=== PATIENT | female | born 1965 | race Caucasian/White ===

== ENCOUNTER 2016-06-06 13:05 | Emergency (ER) | payer OTHER ==
[~2016-06-06 13:05] MED LIST: ASPI-973 PO; BUPR300T51 PO; IBUP800T28 PO; LATA2.5D6 OP; LEVO75TA4 PO; NAPR550T44 PO; OMEP20TA86 PO; ONDA-53 PO; OXYB5TAB10 PO; PRE20 PO; TRAM-14 PO; [UNRECOGNIZED DRUG - CODE] MC
[2016-06-06 13:09] VITALS: BP 144/93; PULSE 94; RESP 24; O2SAT 97
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
[2016-06-06] MEDS ORDERED: LORazepam 1 mg Tablet PO PRN (13:50)
[2016-06-06 15:01] LABS: BASOPHILS % (AUTO) 0.5 % (0-3); EOSINOPHILS % (AUTO) 2.8 % (0-5); MONOCYTES % (AUTO) 8.7 % (4-12); Mean Corpuscular Hemoglobin 27.2 pg (27.0-35.0); Mean Corpuscular Volume 84.4 fL (81-100); Platelet Count 256 bil/L (150-400)
[2016-06-06 15:30] LABS: TROPONIN T < 0.010 ug/L (0.0-0.011)
[2016-06-06 15:32] LABS: Magnesium 2.4 mg/dL (1.6-2.6)
--- NOTE | 2016-06-06 15:41 | DRSVH ---
PROCEDURE: X-RAY CHEST ONE VIEW, PORTABLE ([id number]) INDICATIONS: chest pain, dyspnea TECHNIQUE: One view of the chest was acquired. COMPARISON: [facility], , CHEST 1 VIEW, 11/04/2014, 17:41. FINDINGS: Surgical changes and devices: None. Lungs and pleura: No pleural effusions or pneumothorax. Lungs are clear. Mediastinum: Mediastinal contours appear normal. Heart size is normal. Bones and chest wall: No suspicious bony lesions. Overlying soft tissues appear unremarkable. IMPRESSION: No acute cardiopulmonary disease. Dictated by: Elizabeth Pelaez M.D. on 06/06/2016 at 15:39 Approved by: Elizabeth Pelaez M.D. on 06/06/2016 at 15:39
[2016-06-06] MEDS ORDERED: TRAM50TA2 PO (16:25)
[2016-06-06] MEDS ORDERED: IBUP800T28 PO (16:45)
[2016-06-06 17:04] VITALS: BP 148/94; PULSE 89; RESP 15; O2SAT 100
[2016-06-07] MEDS ORDERED: TRAM50TA2 PO (11:01)
[2016-06-07] MEDS ORDERED: HYDR-656 PO (11:01)
== END 2016-06-06 16:25 | disposition home or self-care (01) ==
LOC: EDUNIT# 13:05 → SED 13:05 → EDBD 13:05 → SED 16:25
DX: R07.9 Chest pain, unspecified (principal); F41.9 Anxiety disorder, unspecified; R06.02 Shortness of breath; M54.9 Dorsalgia, unspecified; G89.29 Other chronic pain; G47.33 Obstructive sleep apnea (adult) (pediatric); M19.90 Unspecified osteoarthritis, unspecified site; F32.9 Major depressive disorder, single episode, unspecified; F43.10 Post-traumatic stress disorder, unspecified; Z87.898 Personal history of other specified conditions; Z95.0 Presence of cardiac pacemaker; Z79.82 Long term (current) use of aspirin

== ENCOUNTER 2016-06-07 09:45 | Emergency (ER) | payer OTHER ==
[~2016-06-07] VITALS: Ht 167.6 cm; Wt 75.5 kg
[~2016-06-07 09:45] MED LIST changes: +TRAM50TA2 PO
[2016-06-07 09:46] VITALS: BP 159/99; PULSE 80; RESP 16; O2SAT 95
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
[2016-06-07] MEDS ORDERED: TRAM50TA2 PO (11:01)
[2016-06-07] MEDS ORDERED: HYDR-656 PO (11:01)
== END 2016-06-07 11:10 | disposition home or self-care (01) ==
LOC: SED 09:45
DX: M54.5 Low back pain (principal); F41.9 Anxiety disorder, unspecified; M79.604 Pain in right leg; M79.605 Pain in left leg; E03.9 Hypothyroidism, unspecified; Z79.82 Long term (current) use of aspirin; Z59.0 Homelessness

== ENCOUNTER 2016-06-12 17:36 | Emergency (ER) | payer OTHER ==
[~2016-06-12] VITALS: Ht 166.4 cm; Wt 75.5 kg
[~2016-06-12 17:36] MED LIST changes: +HYDR-656 PO
[2016-06-12 17:47] VITALS: BP 163/102; PULSE 81; RESP 16; O2SAT 98
--- NOTE | 2016-06-12 18:44 | ED.REPORT ---
HPI-Back Pain 40 and Over Date of Service Jun 12, 2016 ED Provider: MD Pamela This is a 51 year old female with a history of chronic back pain, osteoarthritis sleep apnea, depression, anxiety, PTSD, hypothyroidism presenting to the emergency department complaining of pain at the lumbosacral junction that began yesterday. Pt was standing in line for dinner at the [facility] when she developed sudden onset numbness at the site. Denies radiation of pain or numbness. Also reports one episode bright red-blood streaked stool today morning. Denies recent trauma, injuries, dysuria, nausea, vomiting, fevers, or chills. Pt lives at the [facility] presently. Denies similar symptoms previously. Nursing Notes Stated Complaint: NUMBNESS/PAIN IN BACK Chief Complaint: Back Pain or Injury Nursing Notes Reviewed: Yes Allergies: Coded Allergies: codeine (Verified Adverse Reaction, Intermediate, nauseated, 06/12/16) Scheduled Aspirin (Aspirin) 81 Mg Tablet 81 MG PO DAILY Bupropion ER (Wellbutrin XL) 300 Mg Tab.er.24h 300 MG PO DAILY Latanoprost (Latanoprost) 2.5 Ml Drops 1 GTT OP HS Latanoprost (Latanoprost) 2.5 Ml Drops 1 GTT OP HS Levothyroxine (Levothyroxine) 75 Mcg Tablet 75 MCG PO DAILY Omeprazole (Omeprazole) 20 Mg Tablet.dr 20 MG PO DAILY Oxybutynin Chloride (Oxybutynin Chloride) 5 Mg Tablet 5 MG PO TID Prednisone (PredniSONE) 20 Mg Tablet 20 MG PO DAILY Scheduled PRN Ibuprofen (Ibuprofen) 800 Mg Tablet 800 MG PO DAILY PRN PRN For Pain Ibuprofen (Ibuprofen) 800 Mg Tablet 800 MG PO TID PRN PRN For Pain Naproxen Sodium (Naproxen Sodium) 550 Mg Tab 550 MG PO BID PRN PRN For Pain Ondansetron (Ondansetron) 4 Mg Tablet 4 MG PO PRN For Nausea Tramadol (Ultram) 50 Mg Tablet 100 MG PO Q6H PRN PRN Pain Tramadol (Tramadol) 50 Mg Tablet 50 MG PO Q4H PRN PRN For Pain Tramadol (Tramadol) 50 Mg Tablet 100 MG PO BID PRN PRN For Pain hydrOXYzine Hcl (HydrOXYzine Hcl) 25 Mg Tablet 25 MG PO TID PRN PRN For Anxiety or Agitation Miscellaneous Medications Flunisolide (Flunisolide) 1 Gm Powder 1 GM General Time Seen by MD: 18:44 Chief Complaint Back pain Hx Obtained From: Patient Arrived By: Walk-in Sudden in Onset?: Yes Symptom Duration: Since onset Severity: Current: Moderate Pertinent Negative: Pt denies other symptoms Recent Healthcare: No recent doctor visit, No recent hospitalization Similar Sx Previous: No Past Medical History Past Medical History Obstructive sleep apnea Hx of yeast infections Anxiety Depression PTSD Osteoarthritis Chronic back pain RSD Chronic lower extremity swelling Hypothyroidism Past Surgical History Reports: Cholecystectomy, Hysterectomy Family History Noncontributory Smoking History Never Smoker Social History Alcohol Use: Denies alcohol use Drug Use: Denies drug use Other Social History: Good social support, Frequent ED visitor, Local resident , Homeless Occupation [place] [employer] Status Independent Review of Systems Constitutional: Denies: Chills, Fever Respiratory: Denies: Non-productive cough, Shortness of breath Cardiovascular: Denies: Chest pain GI: Denies: Abdominal pain, Nausea, Vomiting Musculoskeletal: Reports: Back pain, Denies: Extremity pain, Neck pain Neurologic: Reports: Numbness, Denies: Weakness Complete sys rev & neg: except as marked. Physical Exam Initial Vital Signs Vital Signs (First) Date Time Temp Pulse Resp B/P Pulse Ox O2 Delivery O2 Flow Rate FiO2 06/12/16 17:47 37.1 81 16 163/102 98 Room Air Initial VS: Reviewed Head / Eyes: Atraumatic, Normocephalic, PERRL ENT: Mucous membranes moist, Conjunctiva normal, No scleral icterus Neck: Supple, Non-tender, Full range of motion Extremities: Vascular intact, Neuro intact, No swelling, No tenderness Skin: Warm, Dry, No cyanosis Psychiatric: Mood/affect normal, Behavior normal, Normal thought content General/Constitutional: Awake, Alert Respiratory / Chest: Breath sounds NL, Breath sounds = bilat, No respiratory distress, No rales, No rhonchi, No wheezing Cardiovascular: Heart rate NL, Regular rhythm, Heart sounds NL, No murmurs, Peripheral circulation NL Abdomen: Soft, Non-tender, No guarding, No rebound, No distention, No palpable mass, No pulsatile mass Back: Full range of motion, No midline vertebral tend tender at R SI joint, no saddle anesthesia, no signs of cord syndrome Neurologic: Oriented X3, Speech NL, No motor deficits, No sensory deficits, CN II - XII intact Interpretation & Diagnostics Interpretation & Diagnostics: LUMBAR X-RAY IMPRESSION: Degenerative disc disease and facet arthropathy in lumbar spine. Dictated by: Elizabeth Pelaez M.D. on 06/12/2016 at 20:58 Approved by: Elizabeth Pelaez M.D. on 06/12/2016 at 21:00 Lab Results Interpretation Result Diagram: 06/12/16204806/12/[id number] Test 06/12/16 20:49 White Blood Count 5.9th/mm3 (3.8-10.1) Red Blood Count 4.68mil/mm3 (3.90-5.20) Hemoglobin 12.7g/dL (12.0-15.6) Hematocrit 39.7% (35.0-46.0) Mean Corpuscular Volume 84.8fL (81-100) Mean Corpuscular Hemoglobin 27.1pg (27.0-35.0) Mean Corpuscular Hemoglobin Concent 32.0% (32.0-37.0) Red Cell Distribution Width 13.7% (12.3-15.4) Platelet Count 243bil/L (150-400) Neutrophils (%) (Auto) 61.2% (40-74) Lymphocytes (%) (Auto) 27.5% (14-46) Monocytes (%) (Auto) 5.7% (4-12) Eosinophils (%) (Auto) 4.9% (0-5) Basophils (%) (Auto) 0.5% (0-3) Sodium Level 138mEq/L (134-144) Potassium Level 3.7mEq/L (3.5-5.2) Chloride Level 99mEq/L (97-108) Carbon Dioxide Level 26mmol/L (18-29) Blood Urea Nitrogen 16mg/dL (6-24) Creatinine 0.88mg/dL (0.57-1.00) Estimat Glomerular Filtration Rate 96mL/min (>59) Glucose Level 107mg/dL (60-99) Calcium Level 9.2mg/dL (8.5-10.1) Total Bilirubin 0.2mg/dL (0.0-1.2) Aspartate Amino Transf (AST/SGOT) 27U/L (0-50) Alanine Aminotransferase (ALT/SGPT) 19U/L (0-32) Alkaline Phosphatase 70U/L (25-150) Total Protein 7.2g/dL (6.4-8.4) Albumin 4.4g/dL (3.4-5.0) Hold Tobin Top Tube Received (Received) Re-Eval/Medical Decision Med Decision/Clinical Course Normal bowel movement while at the emergency department. No bloody stools. Laboratory work reassuring. Imaging reassuring. Pain adequately treated. I recommend close outpatient follow-up Counseled Regarding: Diagnosis, Lab results, Need for follow-up, When/why to return to ED Discharge & Departure Impression: Primary Impression: Low back pain Chronicity: chronic Back pain laterality: unspecified Sciatica presence: without sciatica Qualified Code: M54.5 - Low back pain Additional Impression: Lower GI bleed Disposition: Home Discharge Condition All VS Reviewed: Yes Condition: Stable Patient Instructions: Acute Low Back Pain (ED) Additional Instructions: Your labs and x-ray were reassuring today. Continue taking medications as prescribed by your primary care provider. Follow up with your primary care provider for colonoscopy referral. Return to the emergency department if you develop any new or worsening symptoms. Referrals: Antonietta Stern (PCP) Scribe Attestation Portions of this note were transcribed by Donald Posada. I, Dr. Santiago personally performed the history, physical exam and medical decision-making; I reviewed and confirmed the accuracy of the information in the transcribed note. Signed by: Donald Posada. 06/12/2016, 03:00. Charli Santiago DO Jun 12, 2016 18:44 DONALD POSADA Jun 12, 2016 18:47
[2016-06-12] MEDS ORDERED: HYDROmorphone 1 mg/mL Inj IM ONE (19:00)
[2016-06-12] MEDS ORDERED: Dexamethasone 10 mg/mL Inj IM ONE (19:00)
[2016-06-12 20:58] LABS: BASOPHILS % (AUTO) 0.5 % (0-3); EOSINOPHILS % (AUTO) 4.9 % (0-5); MONOCYTES % (AUTO) 5.7 % (4-12); Mean Corpuscular Hemoglobin 27.1 pg (27.0-35.0); Mean Corpuscular Volume 84.8 fL (81-100); NEUTROPHILS % (AUTO) 61.2 % (40-74); Platelet Count 243 bil/L (150-400)
--- NOTE | 2016-06-12 21:01 | DRSVH ---
PROCEDURE: X-RAY LUMBAR SPINE, 2 OR 3 VIEW INDICATIONS: low back and right si joint pain TECHNIQUE: 2 views of the lumbar spine were acquired. COMPARISON: None. FINDINGS: Bones: 3 [id number] vertebrae are present. There is normal bony alignment. No vertebral body compression fractures. No suspicious bony lesions. There is degenerative disc disease in lumbar spi ne, moderate at L4-L5 and mild at L3-L4. There is moderate facet arthropathy at L5-S1. The SI joints appears normal. Soft tissues: Overlying bowel gas pattern is normal. No suspicious soft tissue calcifications. IMPRESSION: Degenerative disc disease and facet arthropathy in lumbar spine. Dictated by: Elizabeth Pelaez M.D. on 06/12/2016 at 20:58 Approved by: Elizabeth Pelaez M.D. on 06/12/2016 at 21:00
[2016-06-12] MEDS: Ondansetron 2 mg/mL 2 mL Inj ONE ×2 (22:08→22:40)
[2016-06-12 22:21] VITALS: BP 147/91; PULSE 73; RESP 16; O2SAT 95
== END 2016-06-12 22:11 | disposition home or self-care (01) ==
LOC: SED 17:36
DX: M54.5 Low back pain (principal); K92.2 Gastrointestinal hemorrhage, unspecified; R20.0 Anesthesia of skin; E03.9 Hypothyroidism, unspecified; Z79.82 Long term (current) use of aspirin; Z59.0 Homelessness; Z88.5 Allergy status to narcotic agent
CPT/HCPCS: 36415; 72100; 80053; 85025; 96372; 99284; J1100; J1170

== ENCOUNTER 2016-06-28 08:04 | Emergency (ER) | payer OTHER ==
[~2016-06-28] VITALS: Ht 165.1 cm; Wt 75.5 kg
[2016-06-28 08:08] VITALS: BP 154/99; PULSE 90; RESP 10; O2SAT 98
--- NOTE | 2016-06-28 08:20 | ED.REPORT ---
HPI-Abd Pain F 40 and Over Date of Service Jun 28, 2016 ED Provider: Bruce Godinez DO The patient is a homeless, 51 year old female w/ a hx of cholecystectomy, hysterectomy, back pain, ptsd, depression, anxiety who presents to the ED due to bright red blood in her stool with every bowel movement for the last 2 weeks. Last night, she began having intense lower abdominal pain 10 minutes after eating. None of her other friends who she ate with reported any illness. Associated symptoms include vaginal discharge. She has experienced these symptoms before, but never this bright red or consistent over a long period of time. The pain is preventing her from walking upright. She was last seen at the ED 3 weeks ago at which point her hemoglobin was normal and there were no acute findings. She denies dysuria and pain with bowel movements. Antacids minimally helped to relieve her symptoms. Nursing Notes Stated Complaint: SEVERE ABDOMINAL PAIN/POSS BLOOD IN STOOL Chief Complaint: Female Abdominal Pain Nursing Notes Reviewed: Yes Allergies: Coded Allergies: codeine (Verified Adverse Reaction, Intermediate, nauseated, 06/12/16) Scheduled Bupropion ER (Wellbutrin XL) 150 Mg Tab.er.24h 450 MG PO DAILY Latanoprost (Latanoprost) 2.5 Ml Drops 1 GTT OP HS Latanoprost (Latanoprost) 2.5 Ml Drops 1 GTT OP HS Levothyroxine (Levothyroxine) 75 Mcg Tablet 75 MCG PO DAILY Omeprazole (Omeprazole) 20 Mg Tablet.dr 20 MG PO DAILY Oxybutynin Chloride (Oxybutynin Chloride) 5 Mg Tablet 5 MG PO TID Prednisone (PredniSONE) 20 Mg Tablet 20 MG PO DAILY Scheduled PRN Ibuprofen (Ibuprofen) 800 Mg Tablet 800 MG PO DAILY PRN PRN For Pain Ibuprofen (Ibuprofen) 800 Mg Tablet 800 MG PO TID PRN PRN For Pain Naproxen Sodium (Naproxen Sodium) 550 Mg Tab 550 MG PO BID PRN PRN For Pain Ondansetron (Ondansetron) 4 Mg Tablet 4 MG PO PRN For Nausea Tramadol (Ultram) 50 Mg Tablet 100 MG PO Q6H PRN PRN Pain Tramadol (Tramadol) 50 Mg Tablet 50 MG PO Q4H PRN PRN For Pain Tramadol (Tramadol) 50 Mg Tablet 100 MG PO BID PRN PRN For Pain hydrOXYzine Hcl (HydrOXYzine Hcl) 25 Mg Tablet 25 MG PO TID PRN PRN For Anxiety or Agitation Miscellaneous Medications Flunisolide (Flunisolide) 1 Gm Powder 1 GM General Time Seen by MD: 08:20 Chief Complaint Abdominal pain Hx Obtained From: Patient Arrived By: Walk-in Sudden in Onset?: Yes Onset Occurred: Yesterday Context of Onset: Eating Symptom Duration: Since onset Location: : Abdomen lower Quality: Painful Radiation: : Does not radiate Severity: Current: Mild Recent Healthcare: Recent doctor visit Similar Sx Previous: Yes Past Medical History Past Medical History Obstructive sleep apnea Hx of yeast infections Anxiety Depression PTSD interstitial cystitis Osteoarthritis Chronic back pain RSD Chronic lower extremity swelling Hypothyroidism Past Surgical History left ovary removed Reports: Cholecystectomy, Hysterectomy Family History Noncontributory Smoking History Never Smoker Social History Alcohol Use: Denies alcohol use Drug Use: Denies drug use Other Social History: Good social support, Frequent ED visitor, Local resident , Homeless Occupation [employer] Status Independent Review of Systems GI: Reports: Abdominal pain, Bloody/tarry stool Female: Reports: Vaginal discharge, Denies: Dysuria Complete sys rev & neg: except as marked. Physical Exam Physical Exam Notes: Vital Signs Vital Signs (First) Date Time Temp Pulse Resp B/P Pulse Ox O2 Delivery O2 Flow Rate FiO2 06/28/16 08:08 36.4 90 10 154/99 98 Room Air Initial VS: Reviewed Head / Eyes: Atraumatic, Normocephalic, PERRL ENT: Mucous membranes moist, Conjunctiva normal, No scleral icterus Extremities: Vascular intact, Neuro intact, No swelling, No tenderness Skin: Warm, Dry, No cyanosis Psychiatric: Mood/affect normal, Behavior normal, Normal thought content General/Constitutional: Awake, Alert, No acute distress, Cooperative, Not toxic appearing Respiratory / Chest: Atraumatic, Breath sounds NL, Breath sounds = bilat, No respiratory distress Cardiovascular: Heart rate NL, Regular rhythm, Heart sounds NL, No gallop, No murmurs, No rubs Abdomen: Atraumatic, Soft, No guarding, No rebound, BS normoactive Tenderness/Guarding/Rebound: Positive: Tender suprapubic (mild) mid suprapubic tenderness Back: Atraumatic, Inspection NL, Full range of motion, Painless range of motion , Non-tender Female Genitourinary: Bag End Sewer present, Atraumatic, External genitalia NL, No bleeding, No cervical motion tend Pelvic exam normal Rectum / Perineum: Blood - occult heme -, No gross blood anterior midline hemorrhoid no internal blood seen don't feel any internal hemorrhoids Interpretation & Diagnostics Lab Results Interpretation Result Diagram: 06/28/16 0952 06/28/16 0952 Test 06/28/16 09:52 06/28/16 17:59 White Blood Count 5.5th/mm3 (3.8-10.1) Red Blood Count 4.69mil/mm3 (3.90-5.20) Hemoglobin 12.7g/dL (12.0-15.6) Hematocrit 40.3% (35.0-46.0) Mean Corpuscular Volume 85.9fL (81-100) Mean Corpuscular Hemoglobin 27.1pg (27.0-35.0) Mean Corpuscular Hemoglobin Concent 31.5% (32.0-37.0) Red Cell Distribution Width 13.9% (12.3-15.4) Platelet Count 211bil/L (150-400) Neutrophils (%) (Auto) 60.8% (40-74) Lymphocytes (%) (Auto) 26.6% (14-46) Monocytes (%) (Auto) 8.4% (4-12) Eosinophils (%) (Auto) 3.3% (0-5) Basophils (%) (Auto) 0.7% (0-3) Hold Blue Top Tube Received (Received) Sodium Level 137mEq/L (134-144) Potassium Level 3.8mEq/L (3.5-5.2) Chloride Level 100mEq/L (97-108) Carbon Dioxide Level 23mmol/L (18-29) Blood Urea Nitrogen 13mg/dL (6-24) Creatinine 0.88mg/dL (0.57-1.00) Estimat Glomerular Filtration Rate 96mL/min (>59) Glucose Level 93mg/dL (60-99) Calcium Level 9.2mg/dL (8.5-10.1) Magnesium Level 2.3mg/dL (1.6-2.6) Total Bilirubin 0.4mg/dL (0.0-1.2) Aspartate Amino Transf (AST/SGOT) 16U/L (0-50) Alanine Aminotransferase (ALT/SGPT) 12U/L (0-32) Alkaline Phosphatase 70U/L (25-150) Total Protein 6.9g/dL (6.4-8.4) Albumin 4.6g/dL (3.4-5.0) Lipase 28U/L (13-60) Hold Red Top Tube Received (Received) Hold Tobin Top Tube Received (Received) Urine Color Yellow (YELLOW) Urine Appearance Hazy (CLEAR,HAZY) Urine pH 8.0 (5.0-8.0) Urine Specific Gaines 1.010 (1.003-1.035) Urine Protein Negativemg/dL (NEG,TRACE) Urine Glucose (UA) Negativemg/dL (NEGATIVE) Urine Ketones Negativemg/dL (NEGATIVE) Urine Occult Blood Negative (NEGATIVE) Urine Nitrite Negative (NEGATIVE) Urine Bilirubin Negative (NEGATIVE) Urine Urobilinogen Normalmg/dL (NORMAL) Urine Leukocyte Esterase Small (NEGATIVE) Urine RBC 0-2/hpf (0-2) Urine WBC 11-50/hpf (0-5) Urine Epithelial Cells Few/hpf (NONE-MOD) Urine Crystals None seen (NONE SEEN) Urine Bacteria Few/hpf (NONE-FEW) Urine Hyaline Casts None/lpf (NONE) Urine Granular Casts None seen (NONE SEEN) Urine Waxy Casts None seen (NONE SEEN) Urine Red Blood Cell Casts None seen (NONE SEEN) Urine White Blood Cell Casts None seen (NONE SEEN) Urine Mucus None seen (None Seen) Urine Trichomonas None seen (NONE SEEN) Urine Yeast None (NONE SEEN) Urinalysis Comment None Urine Culture Reflexed Indicated Lab Results Interpretation: urine dip negative X-Ray Abdominal Interpretation IMPRESSION: Large amount of stool consistent with constipation. The bowel gas pattern is normal. Dictated by: Elizabeth Pelaez M.D. on 06/28/2016 at 9:55 Approved by: Elizabeth Pelaez M.D. on 06/28/2016 at 9:57 Study: 2 view Interpretation / Wet Read by: Interpret - Radiologist Re-Eval/Medical Decision Med Decision/Clinical Course 51-year-old female returns concerned about a bleeding hemorrhoid and abdominal pain. Her abdominal pain is in the suprapubic region. Urine dip was normal so initially I did not think there was a UTI. UA with micro shows significant leukocytes in urine. Hemoglobin is been stable from the last time she was here several weeks ago complaining of rectal bleeding. Although by history it sounds like she is seeing more blood I reassured her that it is not too significant point causing anemia. Guaiac is negative. There is no blood seen per rectum. Abdominal x-ray returned showing constipation. Patient advised to take stool softeners. Her abdominal pain was completely relieved by Toradol. She does have a history of interstitial cystitis which I initially believed was the main cause of her lower abdominal pain/suprapubic pain today. I advised her to follow-up with her doctor to have this evaluated further and treated. After discharge the UA with micro-returned and it is noted that patient has UTI. Patient contacted and antibiotics sent to pharmacy Prior to discharge patient was very concerned about her vaginal discharge. She has had a hysterectomy so I reassured her she does not have PID. He described having white cheesy discharge and itchiness in the vaginal region. Pelvic exam was performed with nurse motor coach operator which was unremarkable. There is no discharge seen in the vaginal vault in the mucosal tissue was normal in appearance. Patient was reassured by this. Re-Evaluation/Progress : Time of Eval: 11:03 Re-Evaluation/Progress Note: Pt rechecked. Informed of normal x-ray and urine dip. Pt will be dishcarged and sent home. F/U and RTER warnings given. Pt understands and agrees with plan. Counseled Regarding: Diagnosis, Lab results, Need for follow-up, When/why to return to ED Discharge & Departure Primary Impression: Abdominal pain Abdominal location: unspecified location Qualified Code: R10.9 - Unspecified abdominal pain Additional Impressions: Hemorrhoids Hemorrhoid type: unspecified Qualified Code: K64.9 - Unspecified hemorrhoids Constipation Constipation type: unspecified constipation type Qualified Code: K59.00 - Constipation, unspecified UTI (urinary tract infection) Urinary tract infection type: acute cystitis Hematuria presence: without hematuria Qualified Code: N30.00 - Acute cystitis without hematuria Ruled Out: Yeast infection Disposition: Home Discharge Condition All VS Reviewed: Yes Condition: Stable Additional Instructions: Your evaluation today constipation and a UTI. There are no dangerous causes for your abdominal pain and blood in stool. Stay hydrated and drink plenty of fluids. Use stool softeners for constipation. You should return to the ER if you develop heavy rectal bleeding accompanied by dizziness or weakness. Follow up with your primary care physician for further care and evaluation. If the rectal bleeding persists you should see a jigger operator for a colonoscopy. There is a contact information listed below for a primary care doctor. There are no signs of yeast infection today. Take antibiotics for UTI. I hope you feel better soon! Referrals: Antonietta Stern (PCP) [facility] Att[facility] Portion of this note were transcribed by Paige Sigala. I, Dr. Godinez, personally performed the history, physical exam, and medical decision-making: I reviewed and confirmed the accuracy for the information in the transcribed note. Signed by: verenice Amezcua, 06/28/16 1000 copies to: Antonietta Stern; [facility] Bruce Godinez DO Jun 28, 2016 08:20 Paige Sigala Jun 28, 2016 08:36
[2016-06-28] MEDS ORDERED: BUPR-97 PO (08:32)
--- NOTE | 2016-06-28 09:58 | DRSVH ---
PROCEDURE: X-RAY ACUTE ABDOMINAL SERIES ([id number]) INDICATIONS: abdominal pain TECHNIQUE: One view chest and two views of the abdomen were acquired. COMPARISON: [facility], , CHEST 1 VIEW, 11/04/2014, 17:41. FINDINGS: Surgical changes and devices: None. Chest: Lungs are clear. Heart size is normal. No pleural effusions. No pneumoperitoneum. Abdomen: There is a large amount of stool. Bowel gas pattern is normal. No suspicious calcification s. Visualized solid organ contours appear normal. Bones: No suspicious bony lesions. IMPRESSION: Large amount of stool consistent with constipation. The bowel gas pattern is normal. Dictated by: Elizabeth Pelaez M.D. on 06/28/2016 at 9:55 Approved by: Elizabeth Pelaez M.D. on 06/28/2016 at 9:57
[2016-06-28 10:02] LABS: BASOPHILS % (AUTO) 0.7 % (0-3); EOSINOPHILS % (AUTO) 3.3 % (0-5); MONOCYTES % (AUTO) 8.4 % (4-12); Mean Corpuscular Hemoglobin 27.1 pg (27.0-35.0); Mean Corpuscular Volume 85.9 fL (81-100); NEUTROPHILS % (AUTO) 60.8 % (40-74); Platelet Count 211 bil/L (150-400)
[2016-06-28 10:20] LABS: Magnesium 2.3 mg/dL (1.6-2.6)
[2016-06-28 11:47] VITALS: BP 148/92; PULSE 88; RESP 12; O2SAT 98
[2016-06-28 18:30] LABS: APPEARANCE,URINE HAZY (CLEAR,HAZY); COLOR,URINE YELLOW (YELLOW); OCCULT BLOOD,URINE NEGATIVE (NEGATIVE); UROBILINOGEN,URINE NORMAL (NORMAL)
== END 2016-06-28 11:48 | disposition home or self-care (01) ==
LOC: SED 08:04
DX: N30.10 Interstitial cystitis (chronic) without hematuria (principal); K64.9 Unspecified hemorrhoids; E03.9 Hypothyroidism, unspecified; Z90.49 Acquired absence of other specified parts of digestive tract; Z59.0 Homelessness; Z88.5 Allergy status to narcotic agent

== ENCOUNTER 2016-07-07 08:41 | Emergency (ER) | payer OTHER ==
[~2016-07-07] VITALS: Ht 165.1 cm; Wt 75.5 kg
[~2016-07-07 08:41] MED LIST changes: -ASPI-973 PO; +BUPR-97 PO; -BUPR300T51 PO
[2016-07-07 08:44] VITALS: BP 146/89; PULSE 90; RESP 18; O2SAT 97
--- NOTE | 2016-07-07 09:32 | ED.REPORT ---
HPI-Psychiatric Illness Date of Service Jul 07, 2016 ED Provider: Naldo Silveira Pt is a 51 y/o female w/ a hx of anxiety, depression, PTSD, presenting to the ED c/o anxiety and agitation onset today. She is requesting her regular anxiety medication Valium BID because she states that she ran out recently after taking them as prescribed because her doctor (Dr. Stern) denied her a refill. She denies SI, HI, hallucinations, medical complaints. [facility]. Nursing Notes Stated Complaint: ANXIETY,EXTREME AGITATION Chief Complaint: Psychiatric Complaint Nursing Notes Reviewed: Yes Allergies: Coded Allergies: codeine (Verified Adverse Reaction, Intermediate, nauseated, 06/12/16) Scheduled Bupropion ER (Wellbutrin XL) 150 Mg Tab.er.24h 450 MG PO DAILY Diazepam (Valium) 5 Mg Tablet 5 MG PO BID Latanoprost (Latanoprost) 2.5 Ml Drops 1 GTT OP HS Latanoprost (Latanoprost) 2.5 Ml Drops 1 GTT OP HS Levothyroxine (Levothyroxine) 75 Mcg Tablet 75 MCG PO DAILY Omeprazole (Omeprazole) 20 Mg Tablet.dr 20 MG PO DAILY Oxybutynin Chloride (Oxybutynin Chloride) 5 Mg Tablet 5 MG PO TID Prednisone (PredniSONE) 20 Mg Tablet 20 MG PO DAILY Scheduled PRN Ibuprofen (Ibuprofen) 800 Mg Tablet 800 MG PO DAILY PRN PRN For Pain Ibuprofen (Ibuprofen) 800 Mg Tablet 800 MG PO TID PRN PRN For Pain Naproxen Sodium (Naproxen Sodium) 550 Mg Tab 550 MG PO BID PRN PRN For Pain Ondansetron (Ondansetron) 4 Mg Tablet 4 MG PO PRN For Nausea Tramadol (Ultram) 50 Mg Tablet 100 MG PO Q6H PRN PRN Pain Tramadol (Tramadol) 50 Mg Tablet 50 MG PO Q4H PRN PRN For Pain Tramadol (Tramadol) 50 Mg Tablet 100 MG PO BID PRN PRN For Pain hydrOXYzine Hcl (HydrOXYzine Hcl) 25 Mg Tablet 25 MG PO TID PRN PRN For Anxiety or Agitation Miscellaneous Medications Flunisolide (Flunisolide) 1 Gm Powder 1 GM MC General Time Seen by MD: 09:15 Chief Complaint Anxious Hx Obtained From: Patient Arrived By: Walk-in Onset Occurred: 5 - 8 hours ago Symptom Duration: Since onset Progression Since Onset: Unchanged Severity: Current: No pain currently Severity: Maximum: No pain Recent Healthcare: Previous diagnosis Similar Sx Previous: Yes Risk-Psychiatric Illness Suicide Risk Stratification RF Statements: Risk factors N/A Past Medical History Past Medical History Obstructive sleep apnea Hx of yeast infections Anxiety Depression PTSD interstitial cystitis Osteoarthritis Chronic back pain RSD Chronic lower extremity swelling Hypothyroidism Past Surgical History left ovary removed Reports: Cholecystectomy, Hysterectomy Family History Noncontributory Smoking History Never Smoker Social History Alcohol Use: Denies alcohol use Drug Use: Denies drug use Other Social History: Good social support, Frequent ED visitor, Local resident , Homeless Occupation [employer] Status Independent Review of Systems Constitutional: Denies: Chills, Fever Respiratory: Denies: Non-productive cough, Shortness of breath Cardiovascular: Denies: Chest pain, Dyspnea on exertion GI: Denies: Abdominal pain, Nausea, Vomiting Psychiatric: Reports: Agitation, Anxiety, Denies: Hallucinations, auditory, Hallucinations, visual, Homicidal ideation , Suicidal ideation Complete sys rev & neg: except as marked. Physical Exam Initial Vital Signs Vital Signs (First) Date Time Temp Pulse Resp B/P Pulse Ox O2 Delivery O2 Flow Rate FiO2 07/07/16 08:44 37.1 90 18 146/89 97 Room Air Initial VS: Reviewed, Vital signs normal Head / Eyes: Atraumatic, Normocephalic, PERRL ENT: Mucous membranes moist, Conjunctiva normal, No scleral icterus Neck: Supple, Full range of motion Respiratory: No respiratory distress Cardiovascular: Intact distal pulses Abdomen / GI: Soft, No distention Extremities: Vascular intact, Neuro intact, No swelling, No tenderness Skin: Warm, Dry, No cyanosis General/Constitutional: Awake, Alert, No acute distress, Cooperative, Not toxic appearing Neurologic: Oriented X3, Speech NL, No motor deficits, No sensory deficits Psychiatric: Mood NL, Not suicidal, Not homicidal, No hallucinations, Cognitive function NL Abnormal Mood/Affect: Positive: Flat affect Re-Eval/Medical Decision Med Decision/Clinical Course There is no acute medical condition here. Patient is experiencing seeing anxiety and likely some amount of benzodiazepine withdrawal. She was given 1 dose of Valium while in the ER, and prescribed 2 doses. This was because it is a Friday and the patient has benzodiazepine dependence, and tells us that she has made a good candice effort to try to obtain her refill and was unable to. These prescribed doses today showed only lasts until Friday morning, she is informed that this is not common practice and will not happen again from the ER. Other strict return and follow-up precautions are given. Re-Evaluation/Progress : Time of Eval: 10:15 Re-Evaluation/Progress Note: Pt rechecked. Informed pt of plan for treatment. Pt understands and agrees with plan for treatment. F/U and RTER warnings given. All questions addressed. Counseled Regarding: Diagnosis, Need for follow-up, When/why to return to ED Discharge & Departure Impression: Primary Impression: Anxiety )( Condition at Discharge: No danger to self, No danger to others, No suicidal ideation, No homicidal ideation Disposition: Home Discharge Condition All VS Reviewed: Yes Condition: Stable Additional Instructions: Given 1 dose of Valium and a prescription for 2 pills of Valium. It is not common that we prescribe your chronic and ongoing anxiety, pain, or psychiatric medications. In fact we generally do not. We have made a one-time exception for you because this is the weekend. He will need to call your regular doctor in the morning for further medication refills. You should not expect to have your chronic anxiety managed through the ER. We are always available for any life-threatening or concerning emergencies. Referrals: Antonietta Stern (PCP) [facility] Att[facility] Portions of this note were transcribed by Jakub Lea. I, Dr. Silveira personally performed the history, physical exam and medical decision-making; I reviewed and confirmed the accuracy of the information in the transcribed note. Signed by Haley Allred, 07/07/16 44 copies to: Antonietta Stern Timothy Flaquito WALTERS Jul 07, 2016 09:32 JAKUB LEA Jul 07, 2016 09:39
[2016-07-07] MEDS ORDERED: DIAZ5TAB PO (09:43)
[2016-07-07 10:23] VITALS: BP 146/89; PULSE 90; RESP 18; O2SAT 97
== END 2016-07-07 10:23 | disposition home or self-care (01) ==
LOC: SED 08:41
DX: F41.9 Anxiety disorder, unspecified (principal); R45.1 Restlessness and agitation; E03.9 Hypothyroidism, unspecified; Z59.0 Homelessness; Z88.5 Allergy status to narcotic agent

== ENCOUNTER 2016-07-10 14:23 | Emergency (ER) | payer OTHER ==
[~2016-07-10] VITALS: Ht 165.1 cm; Wt 79.5 kg
[~2016-07-10 14:23] MED LIST changes: +DIAZ5TAB PO
[2016-07-10 14:43] VITALS: BP 133/98; PULSE 79; RESP 15; O2SAT 97
[2016-07-10 16:58] LABS: APPEARANCE,URINE HAZY (CLEAR,HAZY); COLOR,URINE YELLOW (YELLOW); OCCULT BLOOD,URINE NEGATIVE (NEGATIVE); PH,URINE 6.5 (5.0-8.0); UROBILINOGEN,URINE NORMAL (NORMAL)
--- NOTE | 2016-07-10 19:22 | ED.REPORT ---
HPI-Abd Pain F 40 and Over Date of Service Jul 10, 2016 ED Provider: Charli Santiago DO A homeless 51 year old female with a history of anxiety, depression, yeast infections, hysterectomy, and partially treated UTI presents to the ED complaining of a possible UTI. She has been experiencing urinary frequency and dysuria for several days. She was seen recently for a UTI and was prescribed penicillin, but states that she is normally treated with Keflex. The pt denies any history of Crohn's disease, gallbladder disease, or hepatitis. Nursing Notes Stated Complaint: UTI Chief Complaint: Female Abdominal Pain Nursing Notes Reviewed: Yes Allergies: Coded Allergies: codeine (Verified Adverse Reaction, Intermediate, nauseated, 07/10/16) Scheduled Bupropion ER (Wellbutrin XL) 150 Mg Tab.er.24h 450 MG PO DAILY Diazepam (Valium) 5 Mg Tablet 5 MG PO BID Latanoprost (Latanoprost) 2.5 Ml Drops 1 GTT OP HS Latanoprost (Latanoprost) 2.5 Ml Drops 1 GTT OP HS Levothyroxine (Levothyroxine) 75 Mcg Tablet 75 MCG PO DAILY Omeprazole (Omeprazole) 20 Mg Tablet.dr 20 MG PO DAILY Oxybutynin Chloride (Oxybutynin Chloride) 5 Mg Tablet 5 MG PO TID Prednisone (PredniSONE) 20 Mg Tablet 20 MG PO DAILY Scheduled PRN Ibuprofen (Ibuprofen) 800 Mg Tablet 800 MG PO DAILY PRN PRN For Pain Ibuprofen (Ibuprofen) 800 Mg Tablet 800 MG PO TID PRN PRN For Pain Naproxen Sodium (Naproxen Sodium) 550 Mg Tab 550 MG PO BID PRN PRN For Pain Ondansetron (Ondansetron) 4 Mg Tablet 4 MG PO PRN For Nausea Tramadol (Ultram) 50 Mg Tablet 100 MG PO Q6H PRN PRN Pain Tramadol (Tramadol) 50 Mg Tablet 50 MG PO Q4H PRN PRN For Pain Tramadol (Tramadol) 50 Mg Tablet 100 MG PO BID PRN PRN For Pain hydrOXYzine Hcl (HydrOXYzine Hcl) 25 Mg Tablet 25 MG PO TID PRN PRN For Anxiety or Agitation Miscellaneous Medications Flunisolide (Flunisolide) 1 Gm Powder 1 GM [facility] General Time Seen by MD: 17:53 Chief Complaint Other (Possible UTI) Hx Obtained From: Patient Arrived By: Walk-in Sudden in Onset?: No Symptom Duration: Since onset Recent Healthcare: Recent doctor visit, Recent hospitalization Similar Sx Previous: Yes Past Medical History Past Medical History UTI Obstructive sleep apnea Hx of yeast infections Anxiety Depression PTSD interstitial cystitis Osteoarthritis Chronic back pain RSD Chronic lower extremity swelling Hypothyroidism Past Surgical History left ovary removed Reports: Cholecystectomy, Hysterectomy Family History Noncontributory Smoking History Never Smoker Social History Alcohol Use: Denies alcohol use Drug Use: Denies drug use Other Social History: Good social support, Frequent ED visitor, Local resident , Homeless Occupation [employer] Status Independent Review of Systems Constitutional: Denies: Fever Respiratory: Denies: Non-productive cough Cardiovascular: Denies: Chest pain Female: Reports: Dysuria, Urinary frequency Musculoskeletal: Denies: Back pain, Neck pain Complete sys rev & neg: except as marked. Physical Exam Vital Signs Vital Signs (First) Date Time Temp Pulse Resp B/P Pulse Ox O2 Delivery O2 Flow Rate FiO2 07/10/16 14:43 36.3 79 15 133/98 97 Room Air Initial VS: Reviewed General/Constitutional: Awake, Alert Respiratory / Chest: Atraumatic, Breath sounds NL, Breath sounds = bilat, No respiratory distress Cardiovascular: Heart rate NL, Regular rhythm, Heart sounds NL Abdomen: Atraumatic, Soft, Non-tender Back: Atraumatic, Full range of motion Head / Eyes: Atraumatic, Normocephalic, PERRL, EOMI ENT: Atraumatic, Airway patent, Mucous membranes moist Skin: Atraumatic, Color NL, No rash, Warm, Dry Female Genitourinary: Pollution Control Technician present, Atraumatic vaginal mucosa red and irritated no abnormal smell or discharge Neurologic: Oriented X3, Speech NL, No motor deficits, No sensory deficits Neck: Atraumatic, Supple, Full range of motion Upper Extremity / MS: Atraumatic, Full range of motion Lower Extremity / Pelvis / MS: Atraumatic, Full range of motion Psychiatric: Affect NL, Mood NL Interpretation & Diagnostics Lab Results Interpretation Test 07/10/16 15:43 07/10/16 16:32 Hold Urine Received (Received) Urine Color Yellow (YELLOW) Urine Appearance Hazy (CLEAR,HAZY) Urine pH 6.5 (5.0-8.0) Urine Specific [place] 1.015 (1.003-1.035) Urine Protein Negativemg/dL (NEG,TRACE) Urine Glucose (UA) Negativemg/dL (NEGATIVE) Urine Ketones Negativemg/dL (NEGATIVE) Urine Occult Blood Negative (NEGATIVE) Urine Nitrite Negative (NEGATIVE) Urine Bilirubin Negative (NEGATIVE) Urine Urobilinogen Normalmg/dL (NORMAL) Urine Leukocyte Esterase Small (NEGATIVE) Urine RBC 0-2/hpf (0-2) Urine WBC 6-10/hpf (0-5) Urine Epithelial Cells Many/hpf (NONE-MOD) Urine Crystals None seen (NONE SEEN) Urine Bacteria Few/hpf (NONE-FEW) Urine Hyaline Casts None/lpf (NONE) Urine Granular Casts None seen (NONE SEEN) Urine Waxy Casts None seen (NONE SEEN) Urine Red Blood Cell Casts None seen (NONE SEEN) Urine White Blood Cell Casts None seen (NONE SEEN) Urine Mucus None seen (None Seen) Urine Trichomonas None seen (NONE SEEN) Urine Yeast None (NONE SEEN) Urinalysis Comment None Urine Culture Reflexed Indicated Pulse Oximetry Interpretation Pulse Oximetry Interpretation: 99% on room air Pulse Oximetry: Pulse Ox normal Re-Eval/Medical Decision Source of Hx: Old records Re-Evaluation/Progress : Time of Eval: 20:58 Patient Status: Condition improved Re-Evaluation/Progress Note: Pt rechecked, who is comfortable. Diagnosis and the plan for discharge are discussed. The pt understands and agrees with the plan. All questions are addressed at this time. Counseled Regarding: Diagnosis, Lab results, Need for follow-up, When/why to return to ED Discharge & Departure Primary Impression: UTI (urinary tract infection) Disposition: Home Discharge Condition All VS Reviewed: Yes Condition: Stable Patient Instructions: Urinary Tract Infection in Women (ED) Additional Instructions: Take Keflex three times daily for five days. Take 1-2 Guild as needed for severe pain. Do not drive, drink alcohol, or consume acetaminophen while taking the Guild. Follow up with Dr. Godinez within one week for further evaluation. Return to the emergency department if you develop any new or worsening symptoms. Referrals: Antonietta Stern (PCP) Bruce Godinezibe Attestation Portions of this note were transcribed by Amandeep Chin. I, Dr. Santiago personally performed the history, physical exam and medical decision-making; I reviewed and confirmed the accuracy of the information in the transcribed note. Signed by: Haley Cannon, 07/10/2016 and 2229. copies to: Bruce Godinez DO; Antonietta Stern Todd P DO Jul 10, 2016 19:22 AMANDEEP CHIN Jul 10, 2016 20:38
[2016-07-10] MEDS ORDERED: cefTRIAXone Inj 1,000 MG, Lidocaine PF 1% Inj 2.1 ML in Syringe 0 EACH IM ONE (21:00)
[2016-07-10] MEDS ORDERED: _HYDROcodone/APAP 5-325 mg Tablet PO PRN (21:00)
== END 2016-07-10 21:59 | disposition home or self-care (01) ==
LOC: SED 14:23
DX: N39.0 Urinary tract infection, site not specified (principal); Z90.710 Acquired absence of both cervix and uterus; Z88.5 Allergy status to narcotic agent
CPT/HCPCS: 81000; 87086; 87088; 87210; 87491; 87591; 90791; 96372; 99284; J0696

== ENCOUNTER 2016-07-17 02:24 | Emergency (ER) | payer OTHER ==
[~2016-07-17] VITALS: Ht 165.1 cm; Wt 70.0 kg
[2016-07-17 02:26] VITALS: BP 152/100; PULSE 79; RESP 18; O2SAT 98
[2016-07-17] MEDS ORDERED: 0.9% Sodium Chloride 1,000 ML IV ONE (02:53)
[2016-07-17] MEDS ORDERED: Ondansetron 2 mg/mL 2 mL Inj IVPUSH ONE (02:55)
--- NOTE | 2016-07-17 03:09 | ED.REPORT ---
HPI-General Illness Date of Service Jul 17, 2016 ED Provider: Andrei Livingston MD 51 year old female with a history of UTI, yeast infections, and chronic lower extremity swelling presents to the ER complaining of persistent UTI symptoms, primarily dysuria. Currently she is on her third round of antibiotics. She has been treated with penicillin, cephalexin, and is currently on ciprofloxacin. Patient denies fever and chills. She also complains of "burning" pain and swelling of the bilateral lower extremities. Patient is prescribed Tramadol, last dose was at 18:00 yesterday. Nursing Notes Stated Complaint: UTI,SWELLING IN LEGS Chief Complaint: General Complaint Nursing Notes Reviewed: Yes Allergies: Coded Allergies: codeine (Verified Adverse Reaction, Intermediate, nauseated, 07/10/16) Scheduled Bupropion ER (Wellbutrin XL) 150 Mg Tab.er.24h 450 MG PO DAILY Diazepam (Valium) 5 Mg Tablet 5 MG PO BID Latanoprost (Latanoprost) 2.5 Ml Drops 1 GTT OP HS Latanoprost (Latanoprost) 2.5 Ml Drops 1 GTT OP HS Levothyroxine (Levothyroxine) 75 Mcg Tablet 75 MCG PO DAILY Omeprazole (Omeprazole) 20 Mg Tablet.dr 20 MG PO DAILY Oxybutynin Chloride (Oxybutynin Chloride) 5 Mg Tablet 5 MG PO TID Oxybutynin Chloride (Oxybutynin Chloride) 5 Mg Tablet 5 MG PO TID Prednisone (PredniSONE) 20 Mg Tablet 20 MG PO DAILY Scheduled PRN Ibuprofen (Ibuprofen) 800 Mg Tablet 800 MG PO DAILY PRN PRN For Pain Ibuprofen (Ibuprofen) 800 Mg Tablet 800 MG PO TID PRN PRN For Pain Naproxen Sodium (Naproxen Sodium) 550 Mg Tab 550 MG PO BID PRN PRN For Pain Ondansetron (Ondansetron) 4 Mg Tablet 4 MG PO PRN For Nausea Tramadol (Ultram) 50 Mg Tablet 100 MG PO Q6H PRN PRN Pain Tramadol (Tramadol) 50 Mg Tablet 50 MG PO Q4H PRN PRN For Pain Tramadol (Tramadol) 50 Mg Tablet 100 MG PO BID PRN PRN For Pain hydrOXYzine Hcl (HydrOXYzine Hcl) 25 Mg Tablet 25 MG PO TID PRN PRN For Anxiety or Agitation Miscellaneous Medications Flunisolide (Flunisolide) 1 Gm Powder 1 GM [facility] General Time Seen by MD: 02:50 Chief Complaint Other (Persistent UTI) Hx Obtained From: Patient Arrived By: Walk-in Sudden in Onset?: No Onset Occurred: Onset unknown Associated with: Denies: Fever Additional Notes: Lower extremity pain/swelling Past Medical History Past Medical History UTI Obstructive sleep apnea Hx of yeast infections Anxiety Depression PTSD interstitial cystitis Osteoarthritis Chronic back pain RSD Chronic lower extremity swelling Hypothyroidism Past Surgical History left ovary removed Reports: Cholecystectomy, Hysterectomy Family History Noncontributory Smoking History Never Smoker Social History Alcohol Use: Denies alcohol use Drug Use: Denies drug use Other Social History: Good social support, Frequent ED visitor, Local resident , Homeless Occupation Ambulatory Status Independent Review of Systems Full Review of Systems Constitutional: Denies: Chills, Fever Respiratory: Denies: Non-productive cough, Shortness of breath GI: Denies: Diarrhea, Vomiting Female: Reports: Dysuria Musculoskeletal: Reports: Extremity pain (Lower, bilateral), Extremity swelling (Lower, bilateral) Complete sys rev & neg: except as marked. Physical Exam Vital Signs Vital Signs Date Time Temp Pulse Resp B/P Pulse Ox O2 Delivery O2 Flow Rate FiO2 07/17/16 02:26 36.0 79 18 152/100 98 Room Air Initial VS: Reviewed Head / Eyes: Atraumatic, Normocephalic Neck: Supple, Non-tender, Full range of motion Skin: Warm, Dry, No cyanosis Neurologic: Alert, Oriented, Nonfocal General/Constitutional: Awake, Alert, Well developed, Well nourished Behavior: Positive: Anxious ENT: Airway patent, Mucous membranes moist Respiratory / Chest: Breath sounds NL, No respiratory distress, No rales, No rhonchi, No wheezing Cardiovascular: Heart rate NL, Regular rhythm, Heart sounds NL, Cap refill not delayed, Peripheral circulation NL Interpretation & Diagnostics Lab Results Interpretation Result Diagram: 07/17/16 0320 07/17/16 0320 Test 07/17/16 03:20 07/17/16 04:20 White Blood Count 6.2th/mm3 (3.8-10.1) Red Blood Count 4.47mil/mm3 (3.90-5.20) Hemoglobin 12.4g/dL (12.0-15.6) Hematocrit 38.9% (35.0-46.0) Mean Corpuscular Volume 87.0fL (81-100) Mean Corpuscular Hemoglobin 27.7pg (27.0-35.0) Mean Corpuscular Hemoglobin Concent 31.9% (32.0-37.0) Red Cell Distribution Width 13.9% (12.3-15.4) Platelet Count 241bil/L (150-400) Neutrophils (%) (Auto) 52.4% (40-74) Lymphocytes (%) (Auto) 33.7% (14-46) Monocytes (%) (Auto) 9.2% (4-12) Eosinophils (%) (Auto) 4.0% (0-5) Basophils (%) (Auto) 0.5% (0-3) Prothrombin Time 10.8sec (8.1-12.5) Prothromb Time International Ratio 1.01ratio Sodium Level 140mEq/L (134-144) Potassium Level 3.3mEq/L (3.5-5.2) Chloride Level 102mEq/L (97-108) Carbon Dioxide Level 22mmol/L (18-29) Blood Urea Nitrogen 12mg/dL (6-24) Creatinine 0.86mg/dL (0.57-1.00) Estimat Glomerular Filtration Rate 99mL/min (>59) Glucose Level 99mg/dL (60-99) Lactic Acid Level 0.8mmol/L (0.4-2.0) Calcium Level 9.4mg/dL (8.5-10.1) Magnesium Level 2.2mg/dL (1.6-2.6) Total Bilirubin 0.3mg/dL (0.0-1.2) Aspartate Amino Transf (AST/SGOT) 18U/L (0-50) Alanine Aminotransferase (ALT/SGPT) 13U/L (0-32) Alkaline Phosphatase 65U/L (25-150) Total Protein 7.3g/dL (6.4-8.4) Albumin 4.3g/dL (3.4-5.0) Lipase 31U/L (13-60) Urine Color Yellow (YELLOW) Urine Appearance Clear (CLEAR,HAZY) Urine pH 6.0 (5.0-8.0) Urine Specific [place] 1.010 (1.003-1.035) Urine Protein Negativemg/dL (NEG,TRACE) Urine Glucose (UA) Negativemg/dL (NEGATIVE) Urine Ketones Negativemg/dL (NEGATIVE) Urine Occult Blood Negative (NEGATIVE) Urine Nitrite Negative (NEGATIVE) Urine Bilirubin Negative (NEGATIVE) Urine Urobilinogen Normalmg/dL (NORMAL) Urine Leukocyte Esterase Negative (NEGATIVE) Urine RBC 0-2/hpf (0-2) Urine WBC 0-5/hpf (0-5) Urine Epithelial Cells Few/hpf (NONE-MOD) Urine Crystals None seen (NONE SEEN) Urine Bacteria Few/hpf (NONE-FEW) Urine Hyaline Casts None/lpf (NONE) Urine Granular Casts None seen (NONE SEEN) Urine Waxy Casts None seen (NONE SEEN) Urine Red Blood Cell Casts None seen (NONE SEEN) Urine White Blood Cell Casts None seen (NONE SEEN) Urine Mucus Present (None Seen) Urine Trichomonas None seen (NONE SEEN) Urine Yeast None (NONE SEEN) Urinalysis Comment None Urine Culture Reflexed Not indicated Re-Eval/Medical Decision Med Decision/Clinical Course 51-year-old with recurrent UTI reportedly, has a clean urine here tonight. Finishing a course of Cipro presently. She appears to be stressing bladder spasm as the source of her dysuria at the moment. Trial of oxybutynin. Follow up with PCP in the office. In the middle of the disability determination, but finds it difficult to stand for prolonged periods because of swelling in her legs. Work note provided Source of Hx: Old records Time of Eval: 04:47 Re-Evaluation/Progress Note: Returned to re-evaluate patient accompanied by a female paperhanger pipe, per patient request. Discussed lab results and plan to discharge. Patient is amenable to the plan. Return precautions given. All other questions addressed. Counseled Regarding: Diagnosis, Lab results, Need for follow-up, When/why to return to ED Discharge & Departure Primary Impression: Bladder spasm Additional Impression: Leg edema Disposition: Home Discharge Condition All VS Reviewed: Yes Condition: Stable Patient Instructions: Urinary Tract Infection in Women (DC) Additional Instructions: Try oxybutynin up to three times daily if needed for bladder pain Continue and finish your Cipro as directed. Follow up with your doctor in the office. Return if any immediate issues. Referrals: Antonietta Stern (PCP) Scribe Attestation Portions of this note were transcribed by Juve Quintero. I, Dr. Livingston, personally performed the history, physical exam and medical decision-making; I reviewed and confirmed the accuracy of the information in the transcribed note. Signed by: Haley Avitia. 07/17/2016 - 04:59 copies to: Antonietta Stern Christopher W MD Jul 17, 2016 03:09 JUVE QUINTERO Jul 17, 2016 03:16
[2016-07-17 03:45] LABS: BASOPHILS % (AUTO) 0.5 % (0-3); MONOCYTES % (AUTO) 9.2 % (4-12); Mean Corpuscular Hemoglobin 27.7 pg (27.0-35.0); NEUTROPHILS % (AUTO) 52.4 % (40-74); Platelet Count 241 bil/L (150-400)
[2016-07-17 04:01] LABS: INR 1.01 ratio
[2016-07-17 04:05] LABS: Magnesium 2.2 mg/dL (1.6-2.6)
[2016-07-17 04:35] LABS: APPEARANCE,URINE CLEAR (CLEAR,HAZY); COLOR,URINE YELLOW (YELLOW); OCCULT BLOOD,URINE NEGATIVE (NEGATIVE); UROBILINOGEN,URINE NORMAL (NORMAL)
[2016-07-17] MEDS ORDERED: OXYB5TAB10 PO (04:55)
== END 2016-07-17 05:14 | disposition home or self-care (01) ==
LOC: SED 02:24
DX: N32.89 Other specified disorders of bladder (principal); R60.0 Localized edema; E03.9 Hypothyroidism, unspecified; Z88.5 Allergy status to narcotic agent; Z87.440 Personal history of urinary (tract) infections
CPT/HCPCS: 80053; 81000; 83605; 83690; 83735; 85025; 85610; 96361; 96374; 99285; J2405; J7030

== ENCOUNTER 2016-07-18 09:22 | Emergency (ER) | payer OTHER ==
[~2016-07-18] VITALS: Ht 165.1 cm; Wt 70.0 kg
--- NOTE | 2016-07-18 09:24 | ED.REPORT ---
HPI-General Illness Date of Service Jul 18, 2016 ED Provider: Dr. Silveira Pt is a 51 y/o female w/ a hx of frequent ED visits (8th visit in 1.5 months after moving to the area), anxiety, depression, PTSD, chronic pain on Tramadol, presenting to the ED via EMS c/o panic attack onset prior to arrival. She took her regular Bupropion today. She was looking up housing and starting to feel flushed, nauseous, and dizzy. She feels completely normal at time of interview and would like to go back to the [facility]. Nursing Notes Stated Complaint: STRESS/ANXIETY ISSUES Nursing Notes Reviewed: Yes Allergies: Coded Allergies: codeine (Verified Adverse Reaction, Intermediate, nauseated, 07/10/16) Scheduled Bupropion ER (Wellbutrin XL) 150 Mg Tab.er.24h 450 MG PO DAILY Diazepam (Valium) 5 Mg Tablet 5 MG PO BID Latanoprost (Latanoprost) 2.5 Ml Drops 1 GTT OP HS Latanoprost (Latanoprost) 2.5 Ml Drops 1 GTT OP HS Levothyroxine (Levothyroxine) 75 Mcg Tablet 75 MCG PO DAILY Omeprazole (Omeprazole) 20 Mg Tablet.dr 20 MG PO DAILY Oxybutynin Chloride (Oxybutynin Chloride) 5 Mg Tablet 5 MG PO TID Oxybutynin Chloride (Oxybutynin Chloride) 5 Mg Tablet 5 MG PO TID Prednisone (PredniSONE) 20 Mg Tablet 20 MG PO DAILY Scheduled PRN Ibuprofen (Ibuprofen) 800 Mg Tablet 800 MG PO DAILY PRN PRN For Pain Ibuprofen (Ibuprofen) 800 Mg Tablet 800 MG PO TID PRN PRN For Pain Naproxen Sodium (Naproxen Sodium) 550 Mg Tab 550 MG PO BID PRN PRN For Pain Ondansetron (Ondansetron) 4 Mg Tablet 4 MG PO PRN For Nausea Tramadol (Ultram) 50 Mg Tablet 100 MG PO Q6H PRN PRN Pain Tramadol (Tramadol) 50 Mg Tablet 50 MG PO Q4H PRN PRN For Pain Tramadol (Tramadol) 50 Mg Tablet 100 MG PO BID PRN PRN For Pain hydrOXYzine Hcl (HydrOXYzine Hcl) 25 Mg Tablet 25 MG PO TID PRN PRN For Anxiety or Agitation Miscellaneous Medications Flunisolide (Flunisolide) 1 Gm Powder 1 GM MC General Time Seen by MD: 09:24 Chief Complaint Other (stress) Hx Obtained From: Patient, EMS Arrived By: Ambulance Sudden in Onset?: Yes Onset Occurred: Just prior to arrival Symptom Duration: 1 - 15 minutes Severity: Current: No pain currently Severity: Maximum: No pain Recent Healthcare: Recent testing, Previous diagnosis, Prior workup Similar Sx Previous: Yes Past Medical History Past Medical History UTI Obstructive sleep apnea Hx of yeast infections Anxiety Depression PTSD interstitial cystitis Osteoarthritis Chronic back pain RSD Chronic lower extremity swelling Hypothyroidism Past Surgical History left ovary removed Reports: Cholecystectomy, Hysterectomy Family History Noncontributory Smoking History Never Smoker Social History Currently living at [facility] - 07/18/16 Alcohol Use: Denies alcohol use Drug Use: Denies drug use Other Social History: Good social support, Frequent ED visitor, Local resident , Homeless Occupation Ambulatory Status Independent Review of Systems Full Review of Systems Constitutional: Denies: Chills, Fever Cardiovascular: Denies: Chest pain, Dyspnea on exertion GI: Reports: Nausea, Denies: Abdominal pain, Vomiting Psychiatric: Reports: Anxiety, Stress, Denies: Agitation, Change mental status, Confusion, Delusional, Hallucinations, auditory, Hallucinations, visual, Homicidal ideation, Hostile, Insomnia, Suicidal ideation, Unable to control self Complete sys rev & neg: except as marked. Physical Exam Vital Signs Vital Signs Date Time Temp Pulse Resp B/P Pulse Ox O2 Delivery O2 Flow Rate FiO2 07/18/16 09:26 36.3 73 14 148/75 99 Room Air Initial VS: Reviewed, Vital signs normal Head / Eyes: Atraumatic, Normocephalic, PERRL ENT: Mucous membranes moist, Conjunctiva normal, No scleral icterus Neck: Supple, Full range of motion Respiratory: Breath sounds normal, Clear to auscultation, No respiratory distress Cardiovascular: Regular rate & rhythm, Heart sounds normal, Intact distal pulses Abdomen / GI: Soft, No distention Extremities: Vascular intact, Neuro intact, No swelling, No tenderness Skin: Warm, Dry, No cyanosis Neurologic: Alert, Oriented, Nonfocal Psychiatric: Mood NL, Not suicidal, Not homicidal, No hallucinations, Cognitive function NL, Judgment/insight NL Abnormal Mood/Affect: Positive: Flat affect Interpretation & Diagnostics Lab Results Interpretation Test 07/18/16 10:34 Re-Eval/Medical Decision Med Decision/Clinical Course Acute situational disturbance which has resolved, I do not think this is anything life threatening. Patient has a history of the same. Will discharge with routine follow-up and return precautions. Source of Hx: Old records, EMS Time of Eval: 09:54 Re-Evaluation/Progress Note: Pt rechecked. Informed pt of plan for treatment. Pt understands and agrees with plan for treatment. F/U instructions and RTER warnings given. All questions addressed. Counseled Regarding: Diagnosis, Need for follow-up, When/why to return to ED Discharge & Departure Primary Impression: Acute situational disturbance Disposition: Home Discharge Condition All VS Reviewed: Yes Condition: Stable Patient Instructions: Panic Disorder (ED) Additional Instructions: Your regular doctor should prescribe your anti-anxiety medications. Continue being persistent to get an appointment with them. Continue taking your Bupropion as directed. Return to the emergency department if you having thoughts of hurting yourself or others or for any other medical emergencies. Referrals: Antonietta Stern (PCP) Haley Attestation Portions of this note were transcribed by Jakub Lea. I, Dr. Silveira personally performed the history, physical exam and medical decision-making; I reviewed and confirmed the accuracy of the information in the transcribed note. Signed by Haley Allred, 07/18/16 - 1000 copies to: Antonietta Stern Timothy S DO Jul 18, 2016 09:24 JAKUB LEA Jul 18, 2016 09:32
[2016-07-18 09:26] VITALS: BP 148/75; PULSE 73; RESP 14; O2SAT 99
[2016-07-18 10:55] VITALS: BP 148/75; PULSE 73; RESP 14; O2SAT 99
--- NOTE | 2016-07-18 11:28 | NUR ---
Scheduled [facility] July check in at 420PM for 430 appointment with Updated HOTBED OPERATOR
== END 2016-07-18 10:02 | disposition home or self-care (01) ==
LOC: EDBD 09:22 → SED 09:22
DX: F43.0 Acute stress reaction (principal); F41.9 Anxiety disorder, unspecified; F32.9 Major depressive disorder, single episode, unspecified; F43.12 Post-traumatic stress disorder, chronic; G89.29 Other chronic pain; E03.9 Hypothyroidism, unspecified; Z79.891 Long term (current) use of opiate analgesic; Z59.0 Homelessness; Z88.5 Allergy status to narcotic agent

== ENCOUNTER 2016-08-24 21:04 | Emergency (ER) | payer OTHER ==
[~2016-08-24] VITALS: Ht 165.1 cm; Wt 69.1 kg
[2016-08-24 21:10] VITALS: BP 147/95; PULSE 80; RESP 20; O2SAT 96
== END 2016-08-24 22:11 | disposition left against medical advice (07) ==
LOC: SED 21:10
DX: Z53.21 Procedure and treatment not carried out due to patient leaving prior to being seen by health care provider (principal)